=== PATIENT | female | born 1965 | race African-American/Black ===

== ENCOUNTER 2016-09-29 11:50 | Emergency (ER) | payer OTHER ==
[~2016-09-29] VITALS: Ht 157.5 cm; Wt 88.0 kg
[2016-09-29 11:56] VITALS: BP 188/93
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
--- NOTE | 2016-09-29 12:29 | RAD ---
Indication injury. Pain particularly in the third metacarpal phalangeal joint. AP oblique and lateral views of the right hand were obtained. No bony abnormality is seen
[2016-09-29] MEDS ORDERED: DICL50TA2 PO (12:36)
== END 2016-09-29 12:41 | disposition home or self-care (01) ==
LOC: ER 11:50
DX: S60.221A Contusion of right hand, initial encounter (principal); E11.9 Type 2 diabetes mellitus without complications; I10 Essential (primary) hypertension; F41.9 Anxiety disorder, unspecified; Y08.89XA Assault by other specified means, initial encounter; Y93.89 Activity, other specified; Y99.8 Other external cause status; Y92.89 Other specified places as the place of occurrence of the external cause
CPT/HCPCS: 73130; 99284

== ENCOUNTER → 2020-02-19 | Outpatient (CLI) | payer OTHER ==
[~2020-02-19] MED LIST: DICL50TA2 PO
--- NOTE | 2020-02-19 14:55 | KCIC ---
AP and Lateral Views of the Chest 02/19/2020 1:47 PM Indication: Reason: SHORTNESS OF BREATH/STENT / Spl. Instructions: New stent placement and left sided chest pain since 02/18/2020 / History: Comparison: Chest radiograph July 04, 2013 Findings: No pneumothorax or pleural effusion is seen. No acute focal infiltrate is seen. Calcified g ranuloma, right lower lobe noted. New coronary stent appears to be present. No acute osseous changes are identified. IMPRESSION: No radiographic evidence of acute cardiopulmonary process Electronically signed by: Dillan Meneses MD (02/19/2020 2:53 PM) [id number]
== END ==
LOC: KCIC 13:42
PROVIDERS: ATTEND Internal Medicine
DX: R06.02 Shortness of breath (principal)
CPT/HCPCS: 71046